=== PATIENT | male | born 1975 | race Caucasian/White ===

== ENCOUNTER → 2016-07-31 | Outpatient (CLI) | payer OTHER ==
--- NOTE | 2016-08-04 09:14 | RAD ---
EXAM DESCRIPTION: Lumbar Spine 3 Views CLINICAL HISTORY: 41 years,Male,LOW BACK PAIN COMPARISON: None FINDINGS: The lumbar spine demonstrates no evidence of fractures or other acute abnormalities. Disc heights appear unremarkable for age. Facets appear unremarkable for age. Surrounding soft tissues are unremarkable. IMPRESSION: Mild age-appropriate loss of disc height/disc disease throughout the lumbar spine. Electronically signed by: Mu Quiroz MD 08/04/2016 9:15 AM CDT
== END | disposition home or self-care (01) ==
LOC: RAD 14:26
PROVIDERS: ATTEND Nurse Practitioner Family
DX: M51.36 Other intervertebral disc degeneration, lumbar region (principal)

== ENCOUNTER 2017-08-07 10:14 | Emergency (ER) | payer OTHER ==
[2017-08-07 10:46] VITALS: BP 141/72; TEMP 99.3; O2SAT 96
--- NOTE | 2017-08-07 11:32 | RAD ---
EXAM: XR Left Ankle Complete, 3 or More Views CLINICAL HISTORY: The patient is 42 years old and is Male; possible ankle, achilles injury TECHNIQUE: Frontal, lateral and oblique views of the left ankle. COMPARISON: No prior studies available for comparison. FINDINGS: BONES/JOINTS: No fracture or dislocation is identified in the LEFT ankle. SOFT TISSUES: Unremarkable. OTHER FINDINGS: The mortise is intact. IMPRESSION: No fracture or dislocation is identified in the LEFT ankle. Electronically signed by: Liban Vail MD 08/07/2017 11:30 AM CDT
--- NOTE | 2017-08-07 11:44 | ED.PDOC ---
History of Present Illness - General Chief Complaint: Lower Extremity Injury Stated Complaint: left calf and heel pain Time Seen by Provider: 08/07/17 10:56 Source: patient Exam Limitations: no limitations - History of Present Illness Initial Comments: The patient's a 42-year-old male presenting to the emergency room secondary to acute onset left calf pain while moving a patient here at the hospital. 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 No previous injury to that lower leg. He was immediately concerned for an Achilles tendon rupture given that he felt a pop and severe pain. Initially pain is diffuse however after a while pain seems to localize in the mid to proximal calf rather than down towards the Achilles tendon. There is no bruising as of yet. No obvious balled up muscle as of yet. He is neurovascularly intact. plantar and dorsiflexion do appear to be preserved. No actual pain palpation over the heel or ankle itself. No pain in the knee. Timing/Duration: unsure Severity: severe Improving Factors: nothing Worsening Factors: movement Associated Symptoms: denies symptoms Allergies/Adverse Reactions: Allergies NO KNOWN ALLERGY Allergy (Unverified 05/22/14 17:18) Home Medications: Ambulatory Orders Ihrqmyruzcjaj-Ohxw-Dyxufkzyfm [Fioricet] 1 ea PO Q8H PRN #21 tab 08/07/17 Review of Systems - Review of Systems Constitutional: States: no symptoms reported EENTM: States: no symptoms reported Respiratory: States: no symptoms reported Cardiology: States: no symptoms reported Gastrointestinal/Abdominal: States: no symptoms reported Genitourinary: States: no symptoms reported Musculoskeletal: States: see HPI Skin: States: no symptoms reported Neurological: States: no symptoms reported All other Systems: No Change from Baseline Past Medical History (General) - Patient Medical History Hx Stroke: No Hx Congestive Heart Failure: No Hx Diabetes: No - Vaccination History Hx Influenza Vaccination: Yes - Social History Hx Tobacco Use: No Family Medical History - Family History Father Family History: Unknown Living Status: Unknown Physical Exam - Physical Exam General Appearance: Alert, No apparent distress Eye Exam: bilateral normal Ears, Nose, Throat: hearing grossly normal Respiratory: no respiratory distress, no accessory muscle use Cardiovascular/Chest: normal peripheral pulses, no edema Peripheral Pulses: dorsalis pedis,left: 2+, posterior tibialis,left: 2+ Rectal Exam: deferred Extremity: normal range of motion - passive and active, no pedal edema, normal capillary refill, other - he patient does have Tenderness on the left He does have obvious swelling of the calf on the left. No pain over the Achilles tendon. No pain over the ankle. No pain over the knee. Plantar and dorsiflexion of the foot are preserved. Neurologic: bartacker II-XII nml as tested, alert, normal mood/affect, oriented x 3 Skin Exam: normal color Comments: Vital Signs - 24 hr 08/07/17 10:42 Temperature 99.3 F Pulse Rate [ 83 Right Brachial] Respiratory 20 Rate Blood Pressure 141/72 [Right Arm] O2 Sat by Pulse 96 Oximetry Progress - Progress Progress: 08/07/17 11:45 the patient's a 42-year-old male presenting to the emergency room secondary to the acute onset of left calf pain while moving a patient here in the hospital. X-ray of the ankle does not indicate any evidence of any bone fragment near the calcaneus to indicate an Achilles tendon injury. Physical exam approximately 1-2 hours after the injury localizes the pain more to the mid calf. There is some generalized swelling. This is consistent with a partial muscle tear of either the gastrocnemius or soleus muscle. Muscle function remained preserved. The patient however cannot do any heavy lifting or heavy use of that lower extremity for fear of completing a muscle tear for at least the next couple of weeks. He will need to be reevaluated before resuming full duty with it. This can result in long-term chronic pain in that area. He can do mild range of motion exercises. [id number] anti- inflammatories should be avoided for the first few days but then may prove helpful after. He'll be written for Fioricet for as needed use. Departure - Departure Clinical Impression: Gastrocnemius muscle tear Qualifiers: Encounter type: initial encounter Laterality: left Qualified Code(s): S86.812A - Strain of other muscle(s) and tendon(s) at lower leg level, left leg, initial encounter Disposition: Discharge to Home or Self Care Condition: Fair Departure Forms: ED Discharge - Pt. Copy, Patient Portal Self Enrollment Diet: regular diet Activity: increase activity as tolerated Referrals: Romana Lomas COKEMAN [Primary Care Provider] - 1-2 Weeks Prescriptions: Xhduubjxhbksc-Vugg-Wihepugvot [Fioricet] 1 ea PO Q8H PRN #21 tab PRN Reason: Pain Home Medications: Ambulatory Orders [id number]-Jkjg-Qfvnnkppry [Fioricet] 1 ea PO Q8H PRN #21 tab 08/07/17 Additional Instructions: the patient's a 42-year-old male presenting to the emergency room secondary to the acute onset of left calf pain while moving a patient here in the hospital. X-ray of the ankle does not indicate any evidence of any bone fragment near the calcaneus to indicate an Achilles tendon injury. Physical exam approximately 1-2 hours after the injury localizes the pain more to the mid calf. There is some generalized swelling. This is consistent with a partial muscle tear of either the gastrocnemius or soleus muscle. Muscle function remained preserved. The patient however cannot do any heavy lifting or heavy use of that lower extremity for fear of completing a muscle tear for at least the next couple of weeks. He will need to be reevaluated before resuming full duty with it. This can result in long-term chronic pain in that area. He can do mild range of motion exercises. [id number] anti- inflammatories should be avoided for the first few days but then may prove helpful after. He'll be written for Fioricet for as needed use.
== END 2017-08-07 12:45 | disposition home or self-care (01) ==
LOC: ER 10:14
DX: S86.812A Strain of other muscle(s) and tendon(s) at lower leg level, left leg, initial encounter (principal); X50.0XXA Overexertion from strenuous movement or load, initial encounter; Y92.89 Other specified places as the place of occurrence of the external cause; Y99.0 Civilian activity done for income or pay

== ENCOUNTER → 2017-08-18 | Outpatient (CLI) | payer OTHER ==
--- NOTE | 2017-08-18 12:43 | MRI ---
MRI left tib-fib without contrast INDICATION: Lower calf injury concern for Achilles tear versus muscle injury symptoms x2 weeks TECHNIQUE: Noncontrast MR imaging left tib-fib FINDINGS: There is a hematoma in the mid and proximal posterior medial calf measuring approximately 14 cm craniocaudal by 6 cm wide by 1.5 cm in thickness. This is between the soleus and medial head gastrocnemius. The plantaris appears to be continuous along the deep margin of the hematoma. There is no disruption of the Achilles although there is adjacent edema at the myotendinous junction. This is consistent with a calf strain/hematoma. Mild adjacent intramuscular edema in the soleus and gastrocnemius. Superficial edema is also noted along the anterior aspect of the tib-fib region and ankle. There is a fluid fluid level within the hematoma. No fracture or focal osseous destructive lesion. Superficial edema extends anteriorly as well. No ted rupture of the gastrocnemius tendons or muscles or the soleus. Suspect ill-defined tear of the distal myotendinous region of the medial head gastrocnemius IMPRESSION: Posterior medial calf hematoma likely related to strain/partial tear of the distal medial head gastrocnemius tendon with intact appearing plantaris Diffuse soft tissue swelling No Achilles rupture No acute osseous abnormality. Electronically signed by: Torsten Markham MD 08/18/2017 12:42 PM CDT
== END ==
LOC: MRI 13:45
PROVIDERS: ATTEND Nurse Practitioner Family
DX: S86.819D Strain of other muscle(s) and tendon(s) at lower leg level, unspecified leg, subsequent encounter (principal); S80.12XD Contusion of left lower leg, subsequent encounter; M79.662 Pain in left lower leg